=== PATIENT | female | born 1955 | race Caucasian/White ===

== ENCOUNTER 2021-08-05 07:07 | Emergency (ER) | payer OTHER, MEDICARE ==
[~2021-08-05] VITALS: Ht 160 cm; Wt 89.8 kg
[2021-08-05] MEDS ORDERED: SERT50 PO (07:48)
[2021-08-05] MEDS ORDERED: LOSARTAN POTAS100 M1 PO (07:48)
[2021-08-05] MEDS ORDERED: AMLO10 PO (07:48)
[2021-08-05] MEDS ORDERED: ALBU90OI (07:49)
[2021-08-05] MEDS ORDERED: Cyclobenzaprine5 MG PO (08:39)
== END 2021-08-05 09:15 | disposition home or self-care (01) ==
LOC: ER 07:07
DX: S86.911A Strain of unspecified muscle(s) and tendon(s) at lower leg level, right leg, initial encounter (principal); I10 Essential (primary) hypertension; Z79.899 Other long term (current) drug therapy; Z96.651 Presence of right artificial knee joint; W18.30XA Fall on same level, unspecified, initial encounter
CPT/HCPCS: 73560-RT; 99283-25

== ENCOUNTER → 2021-11-06 | Outpatient (CLI) | payer MEDICARE ==
[~2021-11-06] MED LIST: ALBU90OI; AMLO10 PO; Cyclobenzaprine5 MG PO; LOSARTAN POTAS100 M1 PO; SERT50 PO
== END ==
LOC: LAB SHORT 16:18 → LAB 16:18
DX: K13.0 Diseases of lips (principal)
CPT/HCPCS: 87070; 87102; 87106; 87205

== ENCOUNTER → 2021-11-25 | Outpatient (CLI) | payer MEDICARE ==
[2021-11-25 19:46] LABS: BASOPHILS ABSOLUTE AUTO 0.11 K/mm3 (0.00-0.23); BASOPHILS PERCENT AUTO 1 % (0-2); EOSINOPHILS ABSOLUTE AUTO 0.19 K/mm3 (0.00-0.68); EOSINOPHILS PERCENT AUTO 3 % (0-6); Hematocrit 42.8 % (33.0-51.0); Hemoglobin 13.7 g/dL (11.5-16.0); IMMATURE GRAN ABSOLUTE AUTO 0.02 K/mm3 (0.00-0.10); IMMATURE GRAN PERCENT AUTO 0 % (0-1); LYMPHOCYTES ABSOLUTE AUTO 3.18 K/mm3 (0.84-5.20); LYMPHOCYTES PERCENT AUTO 41 % (21-46); MONOCYTES ABSOLUTE AUTO 0.44 K/mm3 (0.16-1.47); MONOCYTES PERCENT AUTO 6 % (4-13); Mean Corpuscular HGB 26.6 pg (26.0-34.0); Mean Corpuscular Volume 83 fL (80-100); NEUTROPHILS ABSOLUTE AUTO 3.77 K/mm3 (1.96-9.15); NEUTROPHILS PERCENT AUTO 49 % (41-73); Platelet Count 306 K/mm3 (150-400); RDW Coefficient Variation 13.5 % (11.7-14.2); RDW Standard Deviation 41.1 fL (35.1-46.3); Red Blood Cell Count 5.15 M/mm3 (3.80-5.20); White Blood Cell Count 7.71 K/mm3 (4.00-11.30)
[2021-11-25 20:08] LABS: Alanine Aminotransfer (ALT/SGP 27 U/L (12-78); Albumin, Blood 4.1 g/dL (3.4-5.0); Albumin/Globulin Ratio 1.1 (0.8-1.8); Alk Phos 92 U/L (50-136); Anion Gap 9 mmol/L (6-16); Aspartate Aminotrans (AST/SGOT 18 U/L (12-37); Bilirubin, Total 0.5 mg/dL (0.1-1.0); Blood Urea Nitrogen 16 mg/dL (8-24); Bun/Creatinine Ratio 14.2 (12.0-20.0); CHOL/HDL RATIO 3.6; CO2, Blood 23 mmol/L (21-32); Calcium, Blood 9.5 mg/dL (8.5-10.1); Chloride, Blood 106 mmol/L (98-108); Cholesterol 193 mg/dL (50-200); Creatinine, Blood 1.13 mg/dL (0.40-1.00); Globulin, Blood 3.9 g/dL (2.2-4.0); Glomerular Filtration Rate 48 (60-); Glucose, Blood 111 mg/dL (70-99); HDL Cholesterol 53 mg/dL (>39); LDL/HDL RATIO 1.9; Low Density Lipoprotein Chol 98 mg/dL (0-110); Sodium, Blood 138 mmol/L (136-145); Triglycerides 209 mg/dL (30-160); Very Low Density Lipoprot Chol 41 mg/dL (6-32)
== END | disposition home or self-care (01) ==
LOC: LAB 09:30 → LAB SHORT 09:30
PROVIDERS: Nurse Practitioner Family
DX: Z13.1 Encounter for screening for diabetes mellitus (principal); Z13.220 Encounter for screening for lipoid disorders; I10 Essential (primary) hypertension; R73.09 Other abnormal glucose
CPT/HCPCS: 80053; 80061; 83036; 84443; 85025

== ENCOUNTER → 2022-01-17 | Outpatient (CLI) | payer MEDICARE | LOC: LAB 15:01 → LAB SHORT 15:01 | DX: R39.0 Extravasation of urine (principal); R35.0 Frequency of micturition | CPT/HCPCS: 87086 ==